=== PATIENT | female | born 1965 | race Caucasian/White ===

== ENCOUNTER 2017-04-01 00:06 | Emergency (ER) | payer OTHER ==
[2017-04-01 06:28] VITALS: BP 108/62
== END 2017-04-01 06:28 | disposition home or self-care (01) ==
LOC: ED 00:06
DX: R51 Headache (principal); R11.0 Nausea; R50.9 Fever, unspecified; I10 Essential (primary) hypertension; E11.9 Type 2 diabetes mellitus without complications
CPT/HCPCS: J1200; J1885; J2405; J7030